=== PATIENT | male | born 1960 | race Caucasian/White ===

== ENCOUNTER → 2019-05-28 | Outpatient (CLI) | payer OTHER ==
[2019-05-28 11:28] LABS: PLATELET COUNT, AUTOMATED 204 K/uL (150-450)
--- NOTE | 2019-05-28 11:44 | EKG ---
FACILITY: [facility] [place] PATIENT NAME: SVEN DANIELLE : [id number] MR: [id number] V: [id number] EXAM DATE: ORDERING PHYSICIAN: PANCHO LORA TECHNOLOGIST: ALKA Test Reason : PREOP-TOE Blood Pressure : / mmHG Vent. Rate : 067 BPM Atrial Rate : 067 BPM P-R Int : 174 ms QRS Dur : 098 ms QT Int : 418 ms P-R-T Axes : 043 -32 091 degrees QTc Int : 441 ms Sinus rhythm with premature supraventricular complexes Left axis deviation Septal infarct , age undetermined ST-T findings in multiple leads raise concern for ischemia Abnormal ECG No previous ECGs available Confirmed by NELIDA MELARA ([id number]) on 05/28/2019 8:44:44 PM Referred By: GENO Confirmed By:NELIDA MELARA
== END ==
LOC: LAB 11:11
PROVIDERS: ATTEND Anesthesiology
DX: Z01.812 Encounter for preprocedural laboratory examination (principal); Z01.810 Encounter for preprocedural cardiovascular examination; R94.31 Abnormal electrocardiogram [ECG] [EKG]; I23.1 Atrial septal defect as current complication following acute myocardial infarction; M86.171 Other acute osteomyelitis, right ankle and foot
CPT/HCPCS: 36415; 82040; 82247; 82310; 82374; 82435; 82565; 82947; 84075; 84132; 84155; 84295; 84450; 84460; 84520; 85025; 93005

== ENCOUNTER → 2019-05-28 | Outpatient (CLI) | payer OTHER | LOC: LAB 11:15 | PROVIDERS: ATTEND Family Medicine | DX: Z01.812 Encounter for preprocedural laboratory examination (principal) | CPT/HCPCS: 82465; 83718; 84153; 84443; 84478 ==

== ENCOUNTER → 2019-06-16 | Outpatient (CLI) | payer OTHER ==
--- NOTE | 2019-06-16 17:28 | EKG ---
[facility] PATIENT NAME: SVEN DANIELLE : [id number] MR: [id number] V: [id number] EXAM DATE: ORDERING PHYSICIAN: KY MANCUSO TECHNOLOGIST: TRICIA Test Reason : REPEAT Blood Pressure : / mmHG Vent. Rate : 066 BPM Atrial Rate : 066 BPM P-R Int : 166 ms QRS Dur : 108 ms QT Int : 432 ms P-R-T Axes : 038 -53 093 degrees QTc Int : 452 ms Normal sinus rhythm Possible Left atrial enlargement Left axis deviation Incomplete right bundle branch block Septal infarct (cited on or before 28-MAY-2019) Abnormal ECG When compared with ECG of 28-MAY-2019 11:31, premature supraventricular complexes are no longer present Incomplete right bundle branch block is now present Confirmed by PANCHO THOMPSON ([id number]) on 06/17/2019 6:28:39 AM Referred By: BARTOLOME Confirmed By:PANCHO THOMPSON
== END ==
LOC: RESP 14:42
PROVIDERS: ATTEND Family Medicine
DX: R94.31 Abnormal electrocardiogram [ECG] [EKG] (principal)
CPT/HCPCS: 93005